=== PATIENT | male | born 1960 | race Hispanic/Latino ===

== ENCOUNTER → 2020-08-19 | Day surgery (SDC) | payer BC ==
[~2020-08-19] MED LIST: FENTANYL CITRATE/PF 100MCG/2 ML INJ ONE; LIDOCAINE HCL 2% LOCAL INJ 5 ML SDV VIAL INJ ONE; MIDAZOLAM HCL 2 MG/2 ML VIAL ONE; PROPOFOL IV EMULSION 10 MG/ML 20 ML VIAL ONE
[2020-08-19 10:31] VITALS: BP 143/81
== END | disposition home or self-care (01) ==
LOC: OR 06:59
PROVIDERS: ATTEND Internal Medicine Gastroenterology
DX: Z09 Encounter for follow-up examination after completed treatment for conditions other than malignant neoplasm (principal); D12.2 Benign neoplasm of ascending colon; D12.4 Benign neoplasm of descending colon; K57.30 Diverticulosis of large intestine without perforation or abscess without bleeding; Z98.0 Intestinal bypass and anastomosis status; K64.8 Other hemorrhoids; M50.20 Other cervical disc displacement, unspecified cervical region; M51.26 Other intervertebral disc displacement, lumbar region; Z01.810 Encounter for preprocedural cardiovascular examination; Z01.812 Encounter for preprocedural laboratory examination; Z20.822 Contact with and (suspected) exposure to COVID-19
CPT/HCPCS: 45385; 93005; J2001; J2250; J2704; J3010; U0002; 45378; 45384